=== PATIENT | male | born 1990 | race Caucasian/White ===

== ENCOUNTER 2016-12-24 00:29 | Inpatient (IN) | payer BC, OTHER ==
[~2016-12-24] VITALS: Ht 185.4 cm; Wt 63.5 kg
[2016-12-24 01:30] VITALS: BP 114/68
[2016-12-24] MEDS ORDERED: MAGNESIUM HYDROXIDE 30 ML LIQUID UDC PO PRN (01:30)
[2016-12-24] MEDS ORDERED: ACETAMINOPHEN 325 MG TABLET PO PRN (01:30)
[2016-12-24] MEDS ORDERED: THIAMINE HCL 200 MG/2 ML VIAL IM ONE (01:30)
[2016-12-24] MEDS ORDERED: IBUPROFEN 400 MG TABLET PO PRN (01:30)
[2016-12-24] MEDS ORDERED: diphenhydrAMINE 50 MG CAPSULE PO PRN (01:30)
[2016-12-24] MEDS ORDERED: DICYCLOMINE HCL 20 MG TABLET PO PRN (01:30)
[2016-12-24] MEDS ORDERED: LOPERAMIDE HCL 2 MG CAPSULE PO PRN ×2 (01:30)
[2016-12-24] MEDS ORDERED: ONDANSETRON 4 MG/2 ML VIAL IM PRN (01:30)
[2016-12-24] MEDS ORDERED: BUPRENORPHINE HCL 2 MG TAB.SUBL SL PRN (01:30)
[2016-12-24] MEDS ORDERED: ONDANSETRON ODT 4 MG TAB.RAPDIS SL PRN (01:30)
[2016-12-24] MEDS ORDERED: MIRALAX 17 GM POWD.PACK PO PRN (01:30)
[2016-12-24] MEDS ORDERED: CLONIDINE HCL 0.1 MG TABLET PO PRN (01:30)
[2016-12-24] MEDS ORDERED: MAG HYDROX/AL HYDROX/SIMETH 30 ML LIQUID UDC PO PRN (01:30)
[2016-12-24] MEDS ORDERED: LORAZEPAM 2 MG/1 ML VIAL IM PRN (01:30)
[2016-12-24] MEDS ORDERED: LORAZEPAM 1 MG TABLET PO PRN ×2 (01:30)
--- NOTE | 2016-12-24 01:30 | NUR ---
Pre-admission assessment Patient is a 26-year old, male, seen at intake, AAOx4, no SOB and with moderate anxiety noted at this time. Discussed with patient admission policies of the unit. Patient is coherent and able to respond to questions appropriately. Patient reported that he is from [place], [place]. Pt is ambulatory with steady gait. Pt reports using these substances: 1) ETOH-Started at age 16, patient reports drinking Curt Lewis 375 ml daily for the past 2 years, last use was 12/21/2016, 375 ml. 2) Heroin via IV-Started at age 19, patient reports using 0.5 to 1.0 gm every other day for the past 1 year, last use was 12/22/2016, 1gm. 3) Crack Cocaine via IV-Started at age21, patient reports using 0.5 gm IV every day for the past 6 months, but the last 2 weeks was about every other day, last use was 12/23/2016, 0.5 gm. 4) Methamphetamine via IV-Started at age 23, patient reports using 0.5 gm about 2 times per week on average, last use was 12/17/2016, 0.5 gm. 5) Cannabis-Started at age 16, patient reports smoking 1-2 joints every 2-3 days, last use was 12/21/2016, 1 joint. Vital signs taken and as follows: IY=019/72, P=92, O2 sat on RA=99%, RR=20, T=98.3. Pt verbalized instructions and teachings regarding disposal of narcotic and other controlled home meds, unit protocols such as taking of vital signs Q4H and handling and disposal of contraband.
--- NOTE | 2016-12-24 01:45 | NUR ---
ADMISSION Patient is a 26-year old, male, admitted and escorted by TRACK LABORER at 0139 to unit. Patient verbalized that he is from [place], is currently unemployed and lives in a trailer car with his brother. Skin check done, with track temple on both antecubital region and open skin noted on the right knee. Per patient, the site was drained with exudates approximately 1 month ago and currently still has scant exudates coming out when squeezed. Cleansed with NS for now and patted dry. Picture was taken and filed on chart. Patient denies Suicidal Ideation nor Homicidal Ideation. No edema noted. Pt is ambulatory with steady gait. Pt stands 6'1" and weighs 140 pounds per standing scale. Vital signs are as follows: BP-114/68, T-98.0, P-86, RR-18 and SPO2 on RA=98%. No pain reported at this time. Patient is AAOx4 and with moderate anxiety and noted to be fidgety. Patient is cooperative and with no SOB noted. Lung sounds clear bilaterally upon auscultation. No cough noted and bowel sounds are present on all quadrants. PERRLA and pupils are 1 mm upon visual check. Pt has NKA, on Regular Diet and is Full Code. Pt reports no history of seizures. Per pt, withdrawal symptoms are anxiety, restless legs, generalized muscle pain, racing thoughts, insomnia, panic attacks, hot flushes, chills and goosebumps. Patient is ambulatory with steady gait. Pt reports using the following substances: 1) ETOH-Started at age 16, patient reports drinking Curt Lewis 375 ml daily for the past 2 years, last use was 12/21/2016, 375 ml. 2) Heroin via IV-Started at age 19, patient reports using 0.5 to 1.0 gm every other day for the past 1 year, last use was 12/22/2016, 1gm. 3) Crack Cocaine via IV-Started at age21, patient reports using 0.5 gm IV every day for the past 6 months, but the last 2 weeks was about every other day, last use was 12/23/2016, 0.5 gm. 4) Methamphetamine via IV-Started at age 23, patient reports using 0.5 gm about 2 times per week on average, last use was 12/17/2016, 0.5 gm. 5) Cannabis-Started at age 16, patient reports smoking 1-2 joints every 2-3 days, last use was 12/21/2016, 1 joint. Patient verbalized the he does not take other substances besides the one mentioned above. Patient informed PMHx of Anxiety, Depression, Asthma and is HIV positive. Per patient, he was taking an antiretroviral medication (Triumeq) but stopped 3 months ago. Per pt, he is prescribed Subutex 6 mg SL daily for maintenance and Seroquel 150 mg PO HS. According to him, he has no Primary Medical Doctor nor Psychiatrist. His longest period of sobriety was 30 days, between 11/11/2016 to 12/12/2016, when he was at [facility]. Patient reports smoking cigarettes, about 1 pack daily. Oriented patient to room and instructed with the use of the call light, placed within reach. Fall, universal, seizure and safety precautions implemented. No c/o significant pain at this time. All needs met. Information relayed to Dr. Valero. Patient refused PNA vaccine and Flu vaccine is out of season. COWS=13, CIWA=15. Will continue to monitor.
[2016-12-24] MEDS ORDERED: LORAZEPAM 1 MG TABLET ONE (01:46)
[2016-12-24] MEDS ORDERED: THIAMINE HCL 200 MG/2 ML VIAL ONE (01:47)
[2016-12-24] MEDS ORDERED: BUPRENORPHINE HCL 2 MG TAB.SUBL SL ONE (01:47)
--- NOTE | 2016-12-24 01:50 | NUR ---
RN note PRN Ativan and Subutex Pt noted to be anxious, fidgety, unable to stay put on bed and complains of chills. COWS=13, CIWA=15. Administered Ativan 2 mg PO PRN and Subutex 4 mg SL PRN as ordered. Will reassess.
--- NOTE | 2016-12-24 02:55 | NUR ---
RN note reassess Pt verbalized "feeling better" and noted to be less fidgety. No chills reported. Ativan and Subutex are effective.
[2016-12-24 03:06] LABS: BASOPHILS % (AUTO) 0.3 % (0.0-2.0); EOSINOPHILS # (AUTO) 0.4 K/uL (0.0-0.7); EOSINOPHILS % (AUTO) 6.8 % (0.0-7.0); HEMATOCRIT 37.1 % (40-50); LYMPHOCYTES # (AUTO) 1.3 K/UL (0.8-4.8); LYMPHOCYTES % (AUTO) 21.5 % (20.5-51.5); MEAN CORPUSCULAR HEMOGLOBIN 26.9 UUG (27.0-31.0); MEAN CORPUSCULAR HGB CONC 32 g/dL (32.0-37.0); MEAN CORPUSCULAR VOLUME 82.8 FL (82.0-92.0); MONOCYTES # (AUTO) 0.6 K/UL (0.1-1.30); MONOCYTES % (AUTO) 9.1 % (0.0-11.0); NEUTROPHILS # (AUTO) 3.9 K/UL (1.8-8.9); NEUTROPHILS % (AUTO) 62.3 % (38.5-71.5); PLATELET COUNT (AUTO) 285 K/UL (150-450); RED BLOOD CELL COUNT(AUTO) 4.49 MIL/UL (4.7-6.1); WHITE BLOOD COUNT (AUTO) 6.2 K/UL (4.0-11.2)
[2016-12-24 03:56] LABS: ETHANOL < 3 MG/DL (0-0)
[2016-12-24 04:00] VITALS: BP 112/71
[2016-12-24 04:00] LABS: ALANINE AMINOTRANSFERASE 41 U/L (16-63); ALKALINE PHOSPHATASE 127 U/L (50-136); AMYLASE 52 U/L (25-115); ASPARTATE AMINOTRANSFERASE 43 U/L (15-37); BILIRUBIN,TOTAL 0.2 mg/dL (0.2-1.0); CARBON DIOXIDE 31 mmol/L (21-32); CHLORIDE 104 mmol/L (98-107); CREATININE 0.9 mg/dL (0.6-1.3); GLUCOSE 68 mg/dL (74-106); LIPASE 136 U/L (73-393); MAGNESIUM 1.7 mg/dL (1.8-2.4); POTASSIUM 3.7 mmol/L (3.5-5.1); TOTAL PROTEIN, SERUM 8.8 g/dL (6.4-8.2); UREA NITROGEN, BLOOD 18 mg/dL (7-18)
[2016-12-24 04:11] LABS: THYROID STIMULATING HORMONE 1.262 mIU/mL (0.358-3.740)
[2016-12-24] MEDS ORDERED: ABAC1TAB15 PO (04:22)
[2016-12-24] MEDS ORDERED: BUPR2TAB3 SL (04:22)
[2016-12-24] MEDS ORDERED: QUET100T PO (04:22)
[2016-12-24 04:28] LABS: *AMPHETAMINE, URINE NEGATIVE (NEGATIVE); *BARBITURATE, URINE NEGATIVE (NEGATIVE); *CANNABINOID, URINE POSITIVE (NEGATIVE); *COCCAINE, URINE POSITIVE (NEGATIVE); *OPIATE, URINE NEGATIVE (NEGATIVE); *PHENCYCLIDINE SCREEN,URINE NEGATIVE (NEGATIVE)
--- NOTE | 2016-12-24 07:10 | NUR ---
End of Shift Patient is a 26-year old, male, admitted for ETOH, Heroin, Crack Cocaine and Methamphetamine Dependence. Pt reports NKA, is Full Code and on Regular Diet. With history of Anxiety, Depression, Asthma and is HIV positive. Pt reports not taking any antiretroviral medication for the past 3 months. Pt was previously prescribed and taking Triumeq. Pt is AAOx4 and with mild anxiety at this time. On PRN medication at the moment. Pt is ambulatory with steady gait, with right knee open skin, for wound care consult. No SOB noted, not in respi distress. Fall, universal, seizure and safety prec in place. Call light within reach. Latest COWS=6, CIWA=7 and slept for 3 hours. Endorsed to AM shift nurse for continuity of care.
--- NOTE | 2016-12-24 07:48 | NUR ---
START OF SHIFT Pt 26 y/o male admitted for etoh, heroin, methamphetamine, cocaine dependence. Pt received in room with eyes closed resting but easily arousable to name. Pt did not want to answer questions at this time. Respirations even and unlabored. Bilateral hand tremors noted. It was reported that pt slept for 3 hours last night. Bed on lowest position with side rails x2 up for safety. Call light within reach. No distress noted at this time.
[2016-12-24 08:23] VITALS: BP 97/55
[2016-12-24] MEDS: MULTIVITAMINS,THERAPEUTIC TABLET PO SCH (08:42)
[2016-12-24] MEDS: FOLIC ACID 1 MG TABLET PO SCH (08:43)
[2016-12-24] MEDS: HYDROXYZINE PAMOATE 25 MG CAPSULE PO PRN (08:43)
[2016-12-24] MEDS: THIAMINE HCL 100 MG TABLET PO SCH (08:43)
--- NOTE | 2016-12-24 08:53 | NUR ---
PRN pt with ciwa=8. Ativan po prn per MD order given and tolerated well.
--- NOTE | 2016-12-24 08:53 | NUR ---
PRN Pt states feels very anxious. Vistaril po prn per MD order given and tolerated well.
--- NOTE | 2016-12-24 09:53 | NUR ---
AGUILA RODRIGUEZ Pt observed in room watching television.
--- NOTE | 2016-12-24 09:53 | NUR ---
PRN EVAL Pt with ciwa=3.
[2016-12-24 12:19] VITALS: BP 112/65
[2016-12-24] MEDS ORDERED: MAGNESIUM OXIDE 400 MG TABLET PO ONE (13:00)
[2016-12-24] MEDS ORDERED: IBUPROFEN 600 MG TABLET PO PRN (13:00)
[2016-12-24] MEDS: LORAZEPAM 1 MG TABLET PO SCH ×3 (13:35→20:43)
[2016-12-24] MEDS: METHOCARBAMOL 750 MG TABLET PO PRN (13:35)
[2016-12-24] MEDS: BUPRENORPHINE HCL 2 MG TAB.SUBL SL SCH ×3 (13:38→20:44)
--- NOTE | 2016-12-24 13:44 | NUR ---
PRN Pt with c/o generalized body aches 09/03. Robaxin po prn per MD order given and tolerated well.
--- NOTE | 2016-12-24 14:44 | NUR ---
PRN EVAL Pt observed on bed laying, watching television.
--- NOTE | 2016-12-24 16:31 | NUR ---
PRN Pt with c/o right knee pain 10/03. Motrin po prn per MD order given and tolerated well.
[2016-12-24 16:56] VITALS: BP 115/52
--- NOTE | 2016-12-24 17:31 | NUR ---
PRN EVAL Pt observed in room on bed watching television. No c/o pain noted.
--- NOTE | 2016-12-24 18:32 | NUR ---
END OF SHIFT Pt 26 y/o male admitted for etoh, heroin, methamphetamine, and cocaine dependence. Pt alert and oriented to name, place, and time. Perrla. Skin warm and slightly moist to touch. Respirations even and unlabored. Bilateral hand tremors noted. Pt with periods of anxiety throughout the day. Pt observed mostly in room today. Pt did not attend group activity. Pt was seen by MD today. Pt medication compliant and tolerated well. No ASE noted. Bed on lowest position [facility] side rails x2 up for safety. Call light within reach. No distress noted at this time.
--- NOTE | 2016-12-24 19:08 | NUR ---
Start of shift note Received report from day shift nurse. Pt is a 26 yo male, A+Ox4, presenting to [facility] for ETOH/Opiate/Meth/Cocaine dependence. Pt has NKA, is on Fall and Seizure precautions. Pt has HX of HIV+, Asthma, Anxiety, Depression, and Genital warts. Pt is on 5 day Ativan taper, tolerated well. No s/s of distress noted at this time. Respirations even and unlabored. Will continue to monitor. Addendum: 12/25/16 at 0714 by NICOL QUINONEZ LVN 5 day Ativan and 5 day Subutex tapers
[2016-12-24 20:20] VITALS: BP 129/79
[2016-12-24] MEDS: QUETIAPINE FUMARATE 100 MG TABLET PO SCH (20:43)
[2016-12-24] MEDS: DOXYCYCLINE HYCLATE 100 MG TABLET PO SCH (20:43)
[2016-12-24] MEDS: GABAPENTIN 300 MG CAPSULE PO SCH (20:43)
[2016-12-24] MEDS: MUPIROCIN 2% OINT 22 GM TUBE TP SCH (20:44)
[2016-12-25 00:58] VITALS: BP 126/80
[2016-12-25 04:02] VITALS: BP 122/78
--- NOTE | 2016-12-25 06:59 | NUR ---
End of shift note Pt is a 26 yo male, A+Ox4, presenting to [facility] for ETOH/Opiate/Meth/Cocaine dependence. Pt has NKA, is on Fall and Seizure precautions. Pt has HX of HIV+, Asthma, Anxiety, Depression, and Genital warts. Pt is on 5 day Ativan taper, tolerated well. Pt slept for a total of 9 HRS. Last COWS: 2 and Last CIWA: 3 @0400. No s/s of distress noted at this time. Respirations even and unlabored. Will endorse to day shift nurse. Addendum: 12/25/16 at 0714 by NICLO QUINONEZ LVN 5 day Ativan and 5 day Subutex tapers
--- NOTE | 2016-12-25 07:00 | NUR ---
Start of Shift Notes: Received patient in his room. Alert and verbally responsive. Able to make needs known. Respirations even and unlabored. No SOB noted. Skin warm and dry to touch. Presence of right knee wound. Abdomen soft and non-distended. BS (+) in all 4 quadrants. No complains of N/V/D or constipation noted. Bladder soft & non-distended. No complains of dysuria noted. Voids independently. Ambulatory ad jesus with steady gait. Patient is a 26 macey old male admitted for ETOH/opiate dependence who was placed on a 5-day Ativan and 5-day Subutex taper as ordered. No adverse reactions noted. Has past medical hx of HIV, asthma, anxiety, depression, and possible genital warts. NKA. FULL CODE. Regular diet. On fall and seizure precautions. Educated patient on his current plan of care for the day and his medication regimen. Encouraged oral fluid intake and encouraged group participation to learn new skills to prevent relapse.
[2016-12-25 07:17] LABS: CREATININE 0.8 mg/dL (0.6-1.3); MAGNESIUM 1.6 mg/dL (1.8-2.4); POTASSIUM 4.5 mmol/L (3.5-5.1)
[2016-12-25 08:00] VITALS: BP 104/76
[2016-12-25] MEDS: GABAPENTIN 300 MG CAPSULE PO SCH ×3 (08:08→21:50)
[2016-12-25] MEDS: THIAMINE HCL 100 MG TABLET PO SCH (08:08)
[2016-12-25] MEDS: LORAZEPAM 1 MG TABLET PO SCH ×2 (08:08→12:02)
[2016-12-25] MEDS: MULTIVITAMINS,THERAPEUTIC TABLET PO SCH (08:08)
[2016-12-25] MEDS: FOLIC ACID 1 MG TABLET PO SCH (08:08)
[2016-12-25] MEDS: DOXYCYCLINE HYCLATE 100 MG TABLET PO SCH ×2 (08:08→21:50)
[2016-12-25] MEDS: MUPIROCIN 2% OINT 22 GM TUBE TP SCH ×2 (08:09→21:51)
[2016-12-25] MEDS ORDERED: BUPRENORPHINE HCL 2 MG TAB.SUBL SL SCH (09:00)
[2016-12-25] MEDS ORDERED: TUBERCULIN,PURIF.PROT.DERIV. 5 TU/0.1 ML TEST ID ONE (09:00)
[2016-12-25] MEDS ORDERED: PATIENT MAY USE OWN MED- MD OK PO SCH (09:00)
--- NOTE | 2016-12-25 10:26 | NUR ---
MD Communication: Notified MD Valero of ineffectiveness of Miralax, and Dulcolax yesterday. Per MD, he will enter in orders today. Also, informed MD that patient was given another dose of Miralax 17gm today and prune juice to wash driller helper in DM. No effectiveness noted at this time.
[2016-12-25 11:06] LABS: HEPATITIS B SURFACE AG Negative (Negative)
[2016-12-25 12:00] VITALS: BP 113/76
[2016-12-25] MEDS ORDERED: KETOROLAC TROMETHAMINE 30 MG INJ IM PRN (12:30)
--- NOTE | 2016-12-25 13:32 | NUR ---
Psych MD Communication: Notified Dr. Lawrence of patient's behavior of frequent mood swings, easily irritable and agitated during the day. Per MD, he will come and see the patient today.
[2016-12-25] MEDS: DICYCLOMINE HCL 20 MG TABLET PO SCH ×2 (14:08→21:50)
[2016-12-25] MEDS: BACLOFEN 10 MG TABLET PO SCH ×2 (14:08→21:50)
[2016-12-25] MEDS: BUPRENORPHINE HCL 2 MG TAB.SUBL SL SCH ×2 (14:08→21:51)
[2016-12-25] MEDS: QUETIAPINE FUMARATE 25 MG TABLET PO SCH ×2 (14:35→16:24)
[2016-12-25 16:00] VITALS: BP 115/68
--- NOTE | 2016-12-25 16:45 | NUR ---
Room Restriction: Patient was placed on room restriction to non-compliant with unit's policies. Patient continues to talk excessively to other clients about substance use despite multiple staff members attempted to stop the behavior. Patient continues to be non-compliant. Per patient, he will comply.
[2016-12-25] MEDS ORDERED: MAGNESIUM OXIDE 400 MG TABLET PO ONE (17:00)
[2016-12-25] MEDS ORDERED: LORAZEPAM 1 MG TABLET PO SCH ×2 (17:00→21:00)
--- NOTE | 2016-12-25 18:59 | NUR ---
End of Shift Notes: Patient continues to be on 5-day Ativan and 5-day Subutex taper as ordered. No adverse reactions noted. Patient is tolerating taper well. VS monitored closely. No significant abnormalities noted. Withdrawal symptoms were closely monitored. Patient presented with COWS 9/CIWA 8 patient presented with anxiety, mild nausea, chills, hot flashes, agitation, bone/joint aches and fine tremors. Last COWS 6/CIWA 5 at 1600. Per patient, Ativan and Subutex has been helping him with his withdrawal symptoms. Patient appears easily irritable during the day and frequent mood swings. Needs encouragement to comply with rules. PPD given to patients right forearm. No bleeding noted. Continues to be on Doxyclycine as ordered for right knee wound. Right knee XR done. MD aware. UA results pending. All needs met and attended. Will continue to monitor closely.
--- NOTE | 2016-12-25 19:10 | NUR ---
Start of shift note Received report from day shift nurse. Pt is a 26 yo male, A+Ox4, presenting to [facility] for ETOH/Opiate/Meth/Cocaine dependence. Pt has NKA, is on Full Code status, and on Regular diet. Pt is on Fall and Seizure precautions. Pt has HX of HIV+, Asthma, Anxiety, Depression, and Genital warts. Pt is on 5 day Ativan taper and 5 day Subutex tapers, tolerated well. No s/s of distress noted at this time. Respirations even and unlabored. Will continue to monitor.
[2016-12-25 20:15] VITALS: BP 118/71
[2016-12-25] MEDS: QUETIAPINE FUMARATE 100 MG TABLET PO SCH (21:50)
[2016-12-25] MEDS: CLONIDINE HCL 0.1 MG TABLET PO SCH (21:50)
[2016-12-26 00:17] VITALS: BP 110/65
[2016-12-26 04:19] VITALS: BP 105/61
--- NOTE | 2016-12-26 07:00 | NUR ---
End of shift note Pt is a 26 yo male, A+Ox4, presenting to [facility] for ETOH/Opiate/Meth/Cocaine dependence. Pt has NKA, is on Full Code status, and on Regular diet. Pt is on Fall and Seizure precautions. Pt has HX of HIV+, Asthma, Anxiety, Depression, and Genital warts. Pt is on 5 day Ativan taper and 5 day Subutex tapers, tolerated well. Pt slept for a total of 10 HRS. Last COWS: 2 and Last CIWA: 3 @0400. No s/s of distress noted at this time. Respirations even and unlabored. Will endorse to day shift nurse.
--- NOTE | 2016-12-26 07:15 | NUR ---
Start of Shift Endorsement received from nightshift nurse. PT is a 26 y/o male admitted for alcohol, heroin, cocaine and meth dependence. Pt has been placed on a 5day Subutex and 5 day Ativan taper. Pt is tolerating the taper AEB CIWA 3, COWS 3 at 0400. Pt did not receive any PRN medications. Pt reports sleeping 10 hours and feels rested. Pt is alert and oriented. Pt is in STABLE condition at this time. Remains compliant with medication and diet regimen. All needs have been met, All safety measures in place per hospital policy. Bed in lowest position, side rails up x2, call-light within reach. Will continue to monitor
[2016-12-26 08:00] VITALS: BP 115/68
[2016-12-26] MEDS: GABAPENTIN 300 MG CAPSULE PO SCH (09:25)
[2016-12-26] MEDS: LORAZEPAM 1 MG TABLET PO SCH ×3 (09:25→21:01)
[2016-12-26] MEDS: THIAMINE HCL 100 MG TABLET PO SCH (09:25)
[2016-12-26] MEDS: QUETIAPINE FUMARATE 25 MG TABLET PO SCH ×3 (09:25→17:00)
[2016-12-26] MEDS: DICYCLOMINE HCL 20 MG TABLET PO SCH ×3 (09:25→21:01)
[2016-12-26] MEDS: FOLIC ACID 1 MG TABLET PO SCH (09:26)
[2016-12-26] MEDS: DOXYCYCLINE HYCLATE 100 MG TABLET PO SCH ×2 (09:26→21:01)
[2016-12-26] MEDS: MUPIROCIN 2% OINT 22 GM TUBE TP SCH ×2 (09:26→21:02)
[2016-12-26] MEDS: CLONIDINE HCL 0.1 MG TABLET PO SCH ×3 (09:26→21:01)
[2016-12-26] MEDS: MULTIVITAMINS,THERAPEUTIC TABLET PO SCH (09:26)
[2016-12-26] MEDS: BUPRENORPHINE HCL 2 MG TAB.SUBL SL SCH ×3 (09:27→21:07)
[2016-12-26] MEDS: BACLOFEN 10 MG TABLET PO SCH (09:30)
[2016-12-26 10:08] LABS: *BASOS 1 % (Not Estab.); *EOS 18 % (Not Estab.); *EOS ABSOLUTE 0.8 x10E3/uL (0.0-0.4); *HCT 35.4 % (37.5-51.0); *HGB 11.6 g/dL (12.6-17.7); *IMMATURE GRANULOCYTES 0 % (.); *LYMPHOCYTES 28 % (Not Estab.); *LYMPHOCYTES ABSOLUTE 1.2 x10E3/uL (0.7-3.1); *MCH 27.1 pg (26.6-33.0); *MCHC 32.8 g/dL (31.5-35.7); *MCV 83 fL (79-97); *MONOCYTES 15 % (Not Estab.); *MONOCYTES ABSOLUTE 0.7 x10E3/uL (0.1-0.9); *NEUTROPHILS 38 % (Not Estab.); *NEUTROPHILS ABSOLUTE 1.7 x10E3/uL (1.4-7.0); *PLT 252 x10E3/uL (150-379); *RBC 4.28 x10E6/uL (4.14-5.80); *RDW 15.4 % (12.3-15.4); *WBC 4.4 x10E3/uL (3.4-10.8)
[2016-12-26 12:00] VITALS: BP 129/85
[2016-12-26] MEDS ORDERED: LORAZEPAM 1 MG TABLET PO ONE (12:00)
[2016-12-26] MEDS: BACLOFEN 20 MG TABLET PO SCH ×2 (14:28→21:01)
[2016-12-26] MEDS: GABAPENTIN 400 MG CAPSULE PO SCH ×2 (14:28→21:01)
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
[2016-12-26 16:00] VITALS: BP 127/82
--- NOTE | 2016-12-26 19:15 | NUR ---
End of shift Endorsement given to nightshift nurse. PT is a 26 y/o male admitted for alcohol, heroin, cocaine and meth dependence. Pt has been placed on a 5day Subutex and 5 day Ativan taper. Pt is tolerating the taper and moderately withdrawing AEB CIWA 5, COWS 6 at 1600. Pt did not receive any PRN medications. Pt received one time dose of Ativan per Dr. Valero. Withheld 1700 Seroquel, pt was asleep and appeared to be too sedated. Educated pt on wound care and diet regimen. Pt did not participate in groups or activities. Intake: 1420ml, Void x4, BM x0 Pt is alert and oriented. Pt is in STABLE condition at this time. Remains compliant with medication and diet regimen. All needs have been met, All safety measures in place per hospital policy. Bed in lowest position, side rails up x2, call-light within reach. Will continue to monitor
--- NOTE | 2016-12-26 19:30 | NUR ---
START OF SHIFT PATIENT IS A 26 YEAR OLD MALE ADMITTED ON 12-24-16 FOR ETOH AND OPIATE DETOX. HHE IS ON A 5 DAY ATIVAN AND 5 DAY SUBUTEX TAPER. HE HAS PMH OF HIV, ASTHMA, ANXIETY AND DEPRESSION. PATIENT IS ON BOTH FALL AND SEIZURE PRECAUTIONS. HE IS A FULL CODE, ON A REGULAR DIET, AND HAS NKA. LAST CIWA 5 COWS 6 AT 1600. MOOD STABLE. PATIENT IN BED AT CHANGE OF SHIFT. REPORT RECEIVED FROM AM NURSE. SAFETY MEASURES IN PLACE. BED LOCKED ND IN LOWEST POSITION. SIDE RAILS UP X 2.
[2016-12-26 20:00] VITALS: BP 124/84
[2016-12-26] MEDS: QUETIAPINE FUMARATE 100 MG TABLET PO SCH (21:00)
[2016-12-27] VITALS (7 sets, daily range): BP systolic 110–161; BP diastolic 63–101
--- NOTE | 2016-12-27 | NUR ---
COWS/CIWA DEFERRED PATIENT RESTING COMFORTABLY IN BED WITH EYES CLOSED. VITAL SIGNS STABLE. CIWA/COWS DEFERRED FOR SLEEP.
[2016-12-27 00:12] LABS: *HELPER T-LYMPH MARKR(CD4)ABSO 65 /uL (359-1519); *HELPER T-LYNPH MARKER CD4)% 5.4 % (30.8-58.5)
--- NOTE | 2016-12-27 04:00 | NUR ---
CIWA/COWS DEFERRED PATIENT VS AT 0400 BP 141/81, P 111,R 20, SPO2 94% ON RA. CIWA/COWS DEFERRED FOR SLEEP.
--- NOTE | 2016-12-27 05:30 | NUR ---
reassessment of vital signs after increased BP and P noted at 0400. recheck patient: woke patient up and patient felt he needed to urinate immediately. patient noted to be incontinent of urine unable to make it to bathroom. increased bp 161/101, p 126. r 20, spo2 99% on ra. t 98.1. with anxiety and restlessness. patient received vistaril 50 mg and clonidine 0.1mg prn at 0559. effect pending.
[2016-12-27] MEDS: HYDROXYZINE PAMOATE 25 MG CAPSULE PO PRN (05:58)
--- NOTE | 2016-12-27 05:59 | NUR ---
PRN MEDICATION patient received vistaril 50 mg and clonidine 0.1mg prn at 0559 for increased BP, P and anxiety/restlessness. effect pending.
--- NOTE | 2016-12-27 06:54 | NUR ---
END OF SHIFT PATIENT IS A 26 YEAR OLD MALE ADMITTED ON 12-24-16 FOR ETOH AND OPIATE DETOX. HE IS ON A 5 DAY ATIVAN AND 5 DAY SUBUTEX TAPER. HE HAS PMH OF HIV, ASTHMA, ANXIETY AND DEPRESSION. PATIENT IS ON BOTH FALL AND SEIZURE PRECAUTIONS. HE IS A FULL CODE, ON A REGULAR DIET, AND HAS NKA. PATIENT VITAL SIGNS AT 2000 BP 124/84, P 103, R 16, SPO2 100% ON RA. T 98.8. CO9WS 8 CIWA 9. PATIENT VITAL SIGNS AT 0000 BP 110/70, P 97, R 14, SPO2 96% ON RA. CIWA/COWS DEFERRED FOR SLEEP. PATIENT VS AT 0400 BP 141/81, P 111,R 20, SPO2 94% ON RA. CIWA/COWS DEFERRED FOR SLEEP.PATIENT VITAL SIGNS RECHECKED AT 0530 WITH NOTED INCREASE BP 161/101, P 126, R 20, SPO2 99% ON RA, T 98.1. PATIENT WITH HEAVY SLEEPING STARTLED BY NURSE, NOTED SAYING "I HAVE TO GO TO THE BATHROOM" BUT DID NOT MAKE IT UP IN TIME. PATIENT URINATED IN BED. PATIENT ASSISTED TO WASH UP, OBTAIN CLEAN CLOTHING AND CHANGE LINEN. PATIENT WITH FINE TREMORS AND CHILLS. CHARGE NURSE NOTIFIED. PATIENT RECEIVED PRN CLONIDINE 0.1 MG AND VISTARIL 50 MG AT 0559. REASSESSED ONE HOUR LATER WITH BP 120/80 P 116, R 20, SPO2 99% ON RA, T 98.0 PATIENT SLEEPING. PATIENT INTAKE 1210 ML OUTPUT 3 VOIDS. SLEPT TOTAL OF 10 HRS-. MOOD STABLE. DENIES SI OR HI. BED LOCKED AND IN LOWEST POSITION. SIDE RAILS UP X 2.
--- NOTE | 2016-12-27 06:54 | NUR ---
REASSESSMENT OF PATIENT PT REASSESSED ONE HOUR AFTER CLONIDINE 0.1 MG AND VISTARIL 50 MG ADMINISTERED FOR ANXIETY, RESTLESSNESS, AND INCREASED BP/P WITH BP NOW 120/80 P 116, R 20, SPO2 99% ON RA, T 98.0 PATIENT SLEEPING
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
[2016-12-27] MEDS: MULTIVITAMINS,THERAPEUTIC TABLET PO SCH (09:00)
[2016-12-27] MEDS: THIAMINE HCL 100 MG TABLET PO SCH (09:00)
[2016-12-27] MEDS: QUETIAPINE FUMARATE 25 MG TABLET PO SCH ×3 (09:00→17:01)
[2016-12-27] MEDS: CLONIDINE HCL 0.1 MG TABLET PO SCH ×3 (09:00→20:38)
[2016-12-27] MEDS: DICYCLOMINE HCL 20 MG TABLET PO SCH ×3 (09:00→20:37)
[2016-12-27] MEDS: DOXYCYCLINE HYCLATE 100 MG TABLET PO SCH ×2 (09:00→20:37)
[2016-12-27] MEDS ORDERED: LORAZEPAM 1 MG TABLET PO SCH (09:00)
[2016-12-27] MEDS: MUPIROCIN 2% OINT 22 GM TUBE TP SCH (09:00)
[2016-12-27] MEDS: GABAPENTIN 400 MG CAPSULE PO SCH ×2 (09:00→14:17)
[2016-12-27] MEDS: BUPRENORPHINE HCL 2 MG TAB.SUBL SL SCH ×2 (09:00→20:38)
[2016-12-27] MEDS: FOLIC ACID 1 MG TABLET PO SCH (09:00)
[2016-12-27] MEDS: BACLOFEN 20 MG TABLET PO SCH ×3 (09:00→20:37)
--- NOTE | 2016-12-27 10:09 | NUR ---
AM MEDS HELD. COWS AND CIWA DEFERRED DUE TO SEDATION.
--- NOTE | 2016-12-27 12:35 | NUR ---
WOUND CARE CONSULT: PT PRESENTS WITH SHINY SWOLLEN RT KNEE WITH CRUSTED WOUND THAT DRAINS. RECOMMEND SURGICAL CONSULT. RECOMMENDATIONS MADE FOR WOUND CARE. DISCUSSED WITH NURSING STAFF. WILL SEE PRN. SALGADO IN AGREEMENT WITH PLAN OF CARE. Addendum: 12/27/16 at 1236 by LUIS ALBERTO SOTO RN Amended: Links added.
[2016-12-27] MEDS: BACITRACIN/POLYMYXIN B OINT 15 GM TUBE TOP SCH ×3 (12:45→20:52)
[2016-12-27] MEDS: LORAZEPAM 1 MG TABLET PO SCH ×2 (16:55→20:37)
--- NOTE | 2016-12-27 17:15 | NUR ---
Therapist prompted client to attend daily group therapy sessions. Client responded by stating that he was not feeling up to attending at this time.
--- NOTE | 2016-12-27 19:07 | NUR ---
END OF SHIFT: PT CONTINUES ON ATIVAN TAPER. SUBUTEX TAPER COMPLETED. LAST CIWA 3 COWS 6. HE SLEPT IN THIS AM AND AM MEDS HELD. HE RESTED MOST OF SHIFT. WOUND NURSE ASSESSED WOUND.PT COMPLIANT WITH MEDS. HIS HYGIENE IS POOR AND HE IS DISHEVELED. PT ENCOURAGED TO SHOWER. WILL PASS SHIFT REPORT TO ONCOMING NIGHT NURSE.
--- NOTE | 2016-12-27 19:51 | NUR ---
START OF SHIFT PATIENT IS A 26 YEAR OLD MALE ADMITTED ON 12-24-16 FOR ETOH AND OPIATE DETOX. HE IS ON A 5 DAY ATIVAN AND 5 DAY SUBUTEX TAPER. HE HAS PMH OF HIV, ASTHMA, ANXIETY AND DEPRESSION. PATIENT IS ON BOTH FALL AND SEIZURE PRECAUTIONS. HE IS A FULL CODE, ON A REGULAR DIET, AND HAS NKA. LAST CIWA 3 COWS 6 AT 1600. MOOD STABLE. PATIENT POSITIVE FOR MRSA OF R KNEE WOUND. CONTACT ISOLATION STARTED. REPORT RECEIVED FROM AM NURSE. SAFETY MEASURES IN PLACE. BED LOCKED AND IN LOWEST POSITION. SIDE RAILS UP X 2.
[2016-12-27] MEDS: GABAPENTIN 300 MG CAPSULE PO SCH (20:37)
[2016-12-28] VITALS: BP 111/66
--- NOTE | 2016-12-28 | NUR ---
COWS/CIWA DEFERRED 0000 CIWA AND COWS DEFERRED FOR SLEEP
[2016-12-28 02:06] LABS: *GC NAA Negative (Negative); *TRIC.VAG. NAA Negative (Negative)
--- NOTE | 2016-12-28 04:00 | NUR ---
COWS/CIWA DEFERRED. VITAL SIGNS REFUSED 0400 VITAL SIGNS REFUSED. COWS AND CIWA DEFERRED FOR SLEEP
--- NOTE | 2016-12-28 06:42 | NUR ---
TEXTED DR. PENNINGTON FOR MRI APPROVAL.
--- NOTE | 2016-12-28 06:50 | NUR ---
END OF SHIFT PATIENT IS A 26 YEAR OLD MALE ADMITTED ON 12-24-16 FOR ETOH AND OPIATE DETOX. HE IS ON A 5 DAY ATIVAN AND 5 DAY SUBUTEX TAPER. HE HAS PMH OF HIV, ASTHMA, ANXIETY AND DEPRESSION. PATIENT IS ON BOTH FALL AND SEIZURE PRECAUTIONS. HE IS A FULL CODE, ON A REGULAR DIET, AND HAS NKA. MOOD STABLE. PATIENT POSITIVE FOR MRSA OF R KNEE WOUND. CONTACT ISOLATION STARTED. INFECTIOUS DISEASE SAW PATIENT. ENCOURAGED PATIENT TO START IV VANCOMYCIN PATIENT STATED HE WOULD/THEN CHANGED MIND AND TOLD ID DESPATCHING AND RECEIVING CLERK HE WANTS TO WAIT FOR OUTPATIENT WHEN DISCHARGED. PATIENT WAS EDUCATED ON RISKS INVOLVED, AND ENCOURAGED TO ACCEPT IV ABT. CURRENTLY STATES HE WANTS TO WAIT AND GO TO "[facility]" WHEN HE LEAVES HERE. WOUND CARE ORDERED Q 12HOURS. WOUND CARE COMPLETED. PATIENT ALSO SEEN BY SURGICAL FOR SURGERY CONSULT. RECOMMENDED AND ORDERED [place] [address] BP 129/74, P 118, R 16, SPO2 98% ON RA, T 97.8. COWS 8 CIWA 7. VS AT 0000 BP 111/66, P 110, R 14, SPO2 99% ON RA, T 98.5. COWS/CIWA DEFERRED FOR SLEEP AT 0000 AND 0400. VS REFUSED AT 0400. PATIENT SLEPT A TOTAL OF 8 HOURS, INTAKE 1092 ML,OUTPUT 2 VOIDS, REPORT GIVEN TO AM NURSE. SAFETY MEASURES IN PLACE. BED LOCKED AND IN LOWEST POSITION. SIDE RAILS UP X 2.
--- NOTE | 2016-12-28 07:41 | NUR ---
Start of shift notes; Received report from night nurse. Patient is a 26 year old male admitted admitted on 12/24/16 for ETOH/Opiate dependence. Patient was placed on a 5 day Ativan taper and 5 day Subutex taper. Patient reported history of HIV positive, asthma, anxiety, depression. Patient is currently on isolation d/t MRSA right knee wound with treatment of Polysporin Q12hrs then cover with bordered gauze. Patient is on fall and seizure precaution. Bed in lowest position, call light within reach. Will continue to monitor patient.
[2016-12-28 08:00] VITALS: BP 132/78
[2016-12-28] MEDS: QUETIAPINE FUMARATE 25 MG TABLET PO SCH ×2 (08:27→16:36)
[2016-12-28] MEDS: BACLOFEN 20 MG TABLET PO SCH ×3 (08:28→20:37)
[2016-12-28] MEDS: GABAPENTIN 300 MG CAPSULE PO SCH ×3 (08:28→20:36)
[2016-12-28] MEDS: MULTIVITAMINS,THERAPEUTIC TABLET PO SCH (08:28)
[2016-12-28] MEDS: FOLIC ACID 1 MG TABLET PO SCH (08:28)
[2016-12-28] MEDS: THIAMINE HCL 100 MG TABLET PO SCH (08:28)
[2016-12-28] MEDS: CLONIDINE HCL 0.1 MG TABLET PO SCH ×3 (08:28→20:38)
[2016-12-28] MEDS: DICYCLOMINE HCL 20 MG TABLET PO SCH ×3 (08:28→20:37)
[2016-12-28] MEDS: DOXYCYCLINE HYCLATE 100 MG TABLET PO SCH ×2 (08:28→20:38)
[2016-12-28] MEDS: BACITRACIN/POLYMYXIN B OINT 15 GM TUBE TOP SCH ×2 (08:41→20:48)
[2016-12-28] MEDS ORDERED: BUPRENORPHINE HCL 2 MG TAB.SUBL SL SCH (09:00)
[2016-12-28] MEDS ORDERED: LORAZEPAM 1 MG TABLET PO SCH (09:00)
[2016-12-28] MEDS ORDERED: LORAZEPAM 1 MG TABLET PO ONE (10:30)
--- NOTE | 2016-12-28 10:30 | NUR ---
MD order; ordered, One time order of Ativan 1mg PO for withdrawal symptoms. Patient's current CIWA score is 5 manifested by anxiety, sweating and agitation. Will continue to monitor patient for effectiveness of medication.
--- NOTE | 2016-12-28 10:39 | NUR ---
MD communication; Patient was seen and evaluated by MD. Per MD, outpatient MRI consult and Infectious disease consult/treatment will be set up after patient is discharged possibly tomorrow. Educated patient regarding infection control, patient verbalized understanding.
--- NOTE | 2016-12-28 11:30 | NUR ---
Re-assessment; Patient's current CIWA is 4 at this time. Ativan one time dose effective. Will continue to monitor patient.
[2016-12-28 12:00] VITALS: BP 117/84
[2016-12-28 16:00] VITALS: BP 118/82
[2016-12-28] MEDS ORDERED: QUET25TA PO (16:23)
[2016-12-28] MEDS ORDERED: CLON0.1T14 PO (16:23)
[2016-12-28] MEDS ORDERED: DICY20TA28 PO (16:23)
[2016-12-28] MEDS ORDERED: DIPH50CA37 PO (16:23)
[2016-12-28] MEDS ORDERED: DOXY100T2 PO (16:23)
[2016-12-28] MEDS ORDERED: BACL20TA PO (16:23)
[2016-12-28] MEDS ORDERED: IBUP-1955 PO (16:23)
[2016-12-28] MEDS ORDERED: GABA-534 PO (16:23)
[2016-12-28] MEDS ORDERED: HYDR-3895 PO (16:23)
--- NOTE | 2016-12-28 18:32 | NUR ---
End of shift note; Patient is AOX4. Patient is a 26 year old male admitted admitted on 12/24/16 for ETOH/Opiate dependence. Patient was placed on a 5 day Ativan taper and 5 day Subutex taper, completed taper without any adverse reactions. Patient reported history of HIV positive, asthma, anxiety, depression. Patient is currently on isolation d/t MRSA right knee wound with treatment of Polysporin Q12hrs then cover with bordered gauze. Patient is on fall and seizure precaution. Patient is medically cleared for discharge tomorrow. Met all patient's needs.
--- NOTE | 2016-12-28 18:52 | NUR ---
START OF SHIFT NOTE: Patient is a 26 year old male admitted to [facility] on 12/24/2016 for Alcohol, Opioid, Methamphetamine, Cocaine, and Marijuana dependence. Patient reports NKA. Patient is on Full Code, Regular Diet, Fall and Seizures Precautions. Patient denies a history of withdrawal-induced seizures, completed 5 day Ativan and 45Day Subutex Taper which tolerated well without ASE. PMH: Anxiety, Depression, Asthma, HIV positive, Chronic tobacco use, Substance abuse. Upon endorsement by day shift nurse, patient is alert and oriented x4. VS: T: 98'4, BP: 122/69, HR:84, RR:18, RA O2Sat: 100%. Pain level "0/10". COWS 6, CIWA 6. Patient denies SI/HI. Respirations unlabored and even. Patient denies SOB and chest pain. Lungs Sounds are clear bilaterally. Bowel Sounds active in all x4 quadrants. Abdomen is soft and non-tender. PERRLA, brisk capillary refill, systems technologist equal and strong. Skin is warm and dry to touch. Patient has healing Right knee abscess. Dressing is intact. Doctor Gamboa at bedside assessed patient. Patient scheduled discharging tomorrow, on 12/29/2016. Encourage fluids as tolerated. Encourage to attend activities groups. All needs met. Safety measures on place. Call light within reach, bed in lowest position and locked, padded rails up bilaterally rails up bilaterally. Patient endorsed by day shift nurse. Report received. Will continue to monitor closely. Addendum: 12/29/16 at 0149 by ALESSANDRO GONZALEZ RN Patient completed 5 day Ativan and 5 Day Subutex Taper which tolerated well without ASE.
[2016-12-28 20:00] VITALS: BP 122/69
[2016-12-29] VITALS: BP 113/65
[2016-12-29] MEDS: METHOCARBAMOL 750 MG TABLET PO PRN (00:03)
[2016-12-29] MEDS: HYDROXYZINE PAMOATE 25 MG CAPSULE PO PRN (00:03)
--- NOTE | 2016-12-29 00:03 | NUR ---
PRN BENADRYL 50 MG 1 CAP PO, ROBAXIN 750 MG 1 TAB PO, AND VISTARIL 50 MG 2 CAPS PO ADMINISTRATION Patient c/o insomnia, myalgia, and anxiety. PRN Benadryl 50 mg 1 capsule PO for insomnia, Robaxin 750 mg 1 tab PO for myalgia, and Vistaril 50 mg 2 caps PO for anxiety administrated with full glass of water as ordered. Patient tolerated well. All needs met. Safety measures on place. Call light within reach, bed in lowest position and locked, padded rails up bilaterally rails up bilaterally. Will continue to monitor closely.
--- NOTE | 2016-12-29 01:03 | NUR ---
RE-ASSESSMENT Patient is sleeping. Respirations even and unlabored. RR 16. PRN Benadryl 50 mg 1 capsule PO for insomnia, PRN Robaxin 750 mg 1 tab PO for myalgia, and PRN Vistaril 50 mg 2 caps PO for anxiety administrated to patient @0003 were effective. All needs met. Safety measures on place. Call light within reach, bed in lowest position and locked, padded rails up bilaterally rails up bilaterally. Will continue to monitor closely.
[2016-12-29 04:00] VITALS: BP 112/73
--- NOTE | 2016-12-29 06:51 | NUR ---
END OF SHIFT NOTE: Patient is a 26 year old male admitted to [facility] on 12/24/2016 for Alcohol, Opioid, Methamphetamine, Cocaine, and Marijuana dependence. Patient reports NKA. Patient is on Full Code, Regular Diet, Fall and Seizures Precautions. Patient denies a history of withdrawal-induced seizures, completed 5 day Ativan and 5 Day Subutex Taper which tolerated well without ASE. PMH: Anxiety, Depression, Asthma, HIV positive, Chronic tobacco use, Substance abuse. Upon endorsement by day shift nurse, patient is alert and oriented x4. Last VS @0400: T: 98'4, BP: 112/73, HR:80, RR:16, RA O2Sat: 100%. Pain level "0/10". CIWA and COWS taken when patient's alert during the night. Last COWS 4, CIWA 3 @ 0400. Patient denies SI/HI. Respirations unlabored and even. Patient denies SOB and chest pain. Abdomen is soft and non-tender. Skin is warm and dry to touch. Patient has right knee wound with treatment of Polysporin Q12hrs then cover with bordered gauze. Dressing is intact. Patient scheduled discharging today, 12/29/2016 @0930. PRN Benadryl 50 mg 1 capsule PO for insomnia, PRN Robaxin 750 mg 1 tab PO for myalgia, and PRN Vistaril 50 mg 2 caps PO for anxiety administrated to patient @0135 were effective. Encourage fluids as tolerated. Patient slept 8 hours 30 minutes, intake 1,600 ml, voided x4. All needs met. Safety measures on place. Call light within reach, bed in lowest position and locked, padded rails up bilaterally. Patient endorsed to day shift nurse.
--- NOTE | 2016-12-29 07:45 | NUR ---
START OF SHIFT Rcvd endorsement from ongoing nurse, client is in room, he is a/ox4, he presents with anxious mood, flat affect. He reports anxiety d/t schedule discharge this am to [facility], he reports difficulty sleeping, restless legs, and fatigue. Discuss discharge instructions, client verbalized understanding. Client is a 26 yo male, admitted to [facility] for withdrawal from alcohol and opioids. He completed 5 day Ativan/Subutex taper, tolerated well. Last CIWA 3/COWS 4 @ 0400. PRN Robaxin fro muscle pain, Vistaril for anxiety and Benadryl for inability to sleep, noted effective, client slept 8.5 hrs. Client is on conrtact isolation for R knee Staph Aureus MRSA moderate growth, sign posted at door. R knee treatment with double antibiotic oint Topical Q12H, no swelling or discomfort noted. Client reported NKA, full code, regular diet. Client denies hx of withdrawal-induced seizure. Side rails x 2 up/padded, bed in lowest/lock position. Call light within reach.
[2016-12-29 08:00] VITALS: BP 119/74
[2016-12-29] MEDS: GABAPENTIN 300 MG CAPSULE PO SCH (08:40)
[2016-12-29] MEDS: QUETIAPINE FUMARATE 25 MG TABLET PO SCH (08:40)
[2016-12-29] MEDS: BACLOFEN 20 MG TABLET PO SCH (08:40)
[2016-12-29] MEDS: DOXYCYCLINE HYCLATE 100 MG TABLET PO SCH (08:40)
[2016-12-29] MEDS: MULTIVITAMINS,THERAPEUTIC TABLET PO SCH (08:41)
[2016-12-29] MEDS: DICYCLOMINE HCL 20 MG TABLET PO SCH (08:41)
[2016-12-29] MEDS: FOLIC ACID 1 MG TABLET PO SCH (08:41)
[2016-12-29] MEDS: THIAMINE HCL 100 MG TABLET PO SCH (08:41)
[2016-12-29 08:43] VITALS: BP 119/74
[2016-12-29] MEDS: CLONIDINE HCL 0.1 MG TABLET PO SCH (08:43)
[2016-12-29] MEDS: BACITRACIN/POLYMYXIN B OINT 15 GM TUBE TOP SCH (09:28)
--- NOTE | 2016-12-29 09:44 | NUR ---
Discharge note Client was admitted for alcohol and opioid withdrawal. Client has a recent CIWA 3/ COWS of 3. Client VS are WNL. Pt LBM was 12/29/16. Client denies any SI/HI. Client verbalized his understanding of the discharge instructions. Client has no complaints at this time. Client discharge instructions, prescriptions and all belongings returned to client. All needs addressed at this time. Client ID band removed, client ambulated off of unit, he left facility via [facility].
== END 2016-12-29 09:14 | disposition home or self-care (01) | DRG 895 ==
LOC: SRC 01:00
PROVIDERS: ADMIT Internal Medicine; ATTEND Internal Medicine
PROC: HZ2ZZZZ Detoxification Services for Substance Abuse Treatment (ICD-10-PCS; principal; 2016-12-24)
PROC: HZ31ZZZ Individual Counseling for Substance Abuse Treatment, Behavioral (ICD-10-PCS; 2016-12-27)
PROC: HZ41ZZZ Group Counseling for Substance Abuse Treatment, Behavioral (ICD-10-PCS; 2016-12-28)
DX: F10.230 Alcohol dependence with withdrawal, uncomplicated (principal); I15.9 Secondary hypertension, unspecified; L02.415 Cutaneous abscess of right lower limb; L03.115 Cellulitis of right lower limb; F11.23 Opioid dependence with withdrawal; Y90.9 Presence of alcohol in blood, level not specified; Z91.14 Patient's other noncompliance with medication regimen; Z81.1 Family history of alcohol abuse and dependence; Z81.3 Family history of other psychoactive substance abuse and dependence; Z59.1 Inadequate housing; Z91.89 Other specified personal risk factors, not elsewhere classified; F17.210 Nicotine dependence, cigarettes, uncomplicated; T81.4XXD Infection following a procedure, subsequent encounter; B95.62 Methicillin resistant Staphylococcus aureus infection as the cause of diseases classified elsewhere; Z79.899 Other long term (current) drug therapy; F41.1 Generalized anxiety disorder; F14.10 Cocaine abuse, uncomplicated; F12.90 Cannabis use, unspecified, uncomplicated; Z87.81 Personal history of (healed) traumatic fracture; F15.10 Other stimulant abuse, uncomplicated; D64.9 Anemia, unspecified; E83.42 Hypomagnesemia; T84.629D Infection and inflammatory reaction due to internal fixation device of unspecified bone of leg, subsequent encounter
CPT/HCPCS: 36415; 70030-TC; 80307; 80349; 80353; 83690; 83735; 84443; 85025; 86361; 86580; 86592; 86705; 86803; 87070; 87077; 87340; 87491; 87806; A4663; G0480; J3411; Q0163